=== PATIENT | male | born 1930 | race Caucasian/White ===

== ENCOUNTER 2016-10-05 14:24 | Inpatient (IN) | payer BC, MEDICARE ==
[2016-10-05] VITALS (8 sets, daily range): BP systolic 103–133; BP diastolic 48–67; PULSE 59–107; RESP 16–20; TEMP 96–99.9; O2SAT 92–96
[~2016-10-05] VITALS: Ht 167.6 cm; Wt 60.1 kg
[2016-10-05] MEDS ORDERED: AZITHROMYCIN 250 MG TAB PO STA (14:48)
[2016-10-05] MEDS ORDERED: SODIUM CHLOR 0.9% 1000 ML INJ 1,000 ML IV ONE (14:48)
[2016-10-05] MEDS ORDERED: cefTRIAXone INJ 2,000 MG in SODIUM CHLORIDE 0.9% INJ 100 ML IV STA (14:48)
[2016-10-05] MEDS ORDERED: SODIUM CHLOR 0.9% 1000 ML INJ 800 ML IV ONE (14:48)
--- NOTE | 2016-10-05 14:59 | PD ---
HPI . Altered mental status Chief Complaint: Altered Mental Status Time Seen by Provider: 14:42 Travel History International Travel<30 days: No Contact w/Intl Traveler<30days: No Traveled to known affect area: No History of Present Illness HPI Patient is brought in by family member with chief complaint altered mental status. History is obtained from the family member. He states that the patient was seen by nurse practitioner about 3 days ago for was not getting any better. He was given prescriptions. The family member reports that the patient has had worsening confusion and hallucinations is being started on those medications. Unfortunately, they did not bring his medications with them. The family member doesn't really know anything about the patient's past medical history. The family member is able to tell me that the patient is normally awake and alert and fully oriented and able to take care of himself. PFSH Past Medical History Blood Disorders: No Heart Rhythm Problems: No Cancer: Yes (PROSTATE) Cardiovascular Problems: Yes High Cholesterol: Yes Chemotherapy: No Chest Pain: No Congestive Heart Failure: No Cerebrovascular Accident: No Endocrine: No Genitourinary: Yes Headaches: No Hypertension: No Immune Disorder: No Kidney Stones: No Musculoskeletal: No Neurologic: Yes Psychiatric: No Respiratory: No Myocardial Infarction: No Radiation Therapy: No Renal Failure: No Seizures: No Past Surgical History AICD: No Genitourinary Surgery: Yes (PROSTATECTOMY, BLADDER SGRY) Joint Replacement: No Pacemaker: No Social History Alcohol Use: No Tobacco Use: No Substance Use: No Allergies-Medications (Allergen,Severity, Reaction): Coded Allergies: No Known Allergies (Verified , 10/05/16) Reported Meds & Prescriptions Reported Meds & Active Scripts Active Reported Simvastatin 20 Mg Tab 20 Mg PO HS Metoprolol Tartrate 25 Mg Tab 25 Mg PO BID Digox (Digoxin) 0.125 Mg Tab 0.125 Mg PO DAILY Zyrtec Allergy (Cetirizine HCl) 10 Mg Cap 10 Mg PO DAILY Tessalon Perles (Benzonatate) 100 Mg Cap 200 Mg PO TID PRN Review of Systems Except as stated in HPI: all other systems reviewed are Neg Respiratory: Positive: Cough Neurologic: Positive: Other (altered mental status) Psychiatric: Positive: Disorder of Thought (hallucinations) Physical Exam Narrative GENERAL: This is an older man who does not appear to be in any acute distress. SKIN: Hot and dry. It feels like he is running a fever. HEAD: Atraumatic. Normocephalic. EYES: Pupils equal and round. ENT: No nasal bleeding or discharge. Mucous membranes pink but dry. NECK: Trachea midline. Neck is supple. CARDIOVASCULAR: Regular rate and rhythm. He sounded tachycardic on exam. Initial heart rate was reported at 107. EKG has a heart rate of 95. RESPIRATORY: No accessory muscle use. His lungs sounded clear with full air movement throughout. Initial sats are 92%. He does have a cough. GASTROINTESTINAL: Abdomen soft, non-tender, nondistended. MUSCULOSKELETAL: No obvious deformities. No edema. NEUROLOGICAL: Awake and alert. No obvious cranial nerve deficits. Motor grossly within normal limits. Inappropriate speech. (His words are clear but his words do not appropriately answer the question asked.) PSYCHIATRIC: Unable to evaluate. Family member does report hallucinations. The patient appears anxious. Data Data Last Documented VS Vital Signs Date Time Temp Pulse Resp B/P Pulse Ox O2 Delivery O2 Flow Rate FiO2 10/05/16 15:41 94 Room Air 10/05/16 15:15 99.9 98 20 133/67 Orders Electrocardiogram (10/05/16 14:38) Complete Blood Count With Diff (10/05/16 14:48) Comprehensive Metabolic Panel (10/05/16 14:48) Lactic Acid Sepsis Protocol (10/05/16 14:48) Magnesium (Mg) (10/05/16 14:48) Ckmb (Isoenzyme) Profile (10/05/16 14:48) Troponin I (10/05/16 14:48) Urinalysis - C+S If Indicated (10/05/16 14:48) Influenzae A/B Antigen (10/05/16 14:48) Blood Culture (10/05/16 14:48) Chest, Single Ap (10/05/16 14:48) Blood Glucose (10/05/16 14:48) Ecg Monitoring (10/05/16 14:48) Iv Access Insert/Monitor (10/05/16 14:48) Oximetry (10/05/16 14:48) Oxygen Administration (10/05/16 14:48) Ceftriaxone Inj (Rocephin Inj) (10/05/16 14:48) Azithromycin (Zithromax) (10/05/16 14:48) Acetaminophen (Tylenol) (10/05/16 15:00) Sodium Chlor 0.9% 1000 Ml Inj (Ns 1000 M (10/05/16 14:48) Sodium Chlor 0.9% 1000 Ml Inj (Ns 1000 M (10/05/16 14:48) Cath For Specimen (10/05/16 15:46) Ct Brain W/O Iv Contrast(Rout) (10/05/16 ) Labs Laboratory Tests Test 10/05/16 15:15 White Blood Count 5.2 TH/MM3 Red Blood Count 4.22 MIL/MM3 Hemoglobin 12.7 GM/DL Hematocrit 36.9 % Mean Corpuscular Volume 87.5 FL Mean Corpuscular Hemoglobin 30.2 PG Mean Corpuscular Hemoglobin 34.5 % Concent Red Cell Distribution Width 12.7 % Platelet Count 155 TH/MM3 Mean Platelet Volume 7.6 FL Neutrophils (%) (Auto) 78.6 % Lymphocytes (%) (Auto) 13.5 % Monocytes (%) (Auto) 7.4 % Eosinophils (%) (Auto) 0.3 % Basophils (%) (Auto) 0.2 % Neutrophils # (Auto) 4.1 TH/MM3 Lymphocytes # (Auto) 0.7 TH/MM3 Monocytes # (Auto) 0.4 TH/MM3 Eosinophils # (Auto) 0.0 TH/MM3 Basophils # (Auto) 0.0 TH/MM3 CBC Comment DIFF FINAL Differential Comment Sodium Level 132 MEQ/L Potassium Level 3.7 MEQ/L Chloride Level 97 MEQ/L Carbon Dioxide Level 23.9 MEQ/L Anion Gap 11 MEQ/L Blood Urea Nitrogen 26 MG/DL Random Glucose 101 MG/DL Lactic Acid Level 1.0 mmol/L Calcium Level 8.1 MG/DL Magnesium Level 2.3 MG/DL Albumin 3.5 GM/DL MDM Medical Decision Making Medical Screen Exam Complete: Yes Emergency Medical Condition: Yes Medical Record Reviewed: Yes (he has no old records for review) Interpretation(s) EKG shows a sinus rhythm with a rate of 95 currently. There is no ST segment elevation or depression. Differential Diagnosis Differential diagnosis of altered mental status includes but is not limited to infection, electrolyte abnormality, neurological event, intoxication Narrative Course Patient since with progressively worsening altered mental status for the last 3 days. He is hallucinating. I would favor sepsis at this point. The nurse has large from the pharmacy that the patient is currently taking Zyrtec and Tessalon Perles. I have queried up-to-date and both of these medications can cause alteration in mental status. The pharmacy reports no other prescriptions on file for this patient. CXR: Single AP view of the chest. Cardiac pacemaker in place. The lungs are clear. Cardiomediastinal silhouette within normal limits. No evidence of pleural effusion or pneumothorax. The chest x-ray was independently viewed by me. Flu screen is negative. Sepsis Criteria SIRS Criteria (2 or more): Heart rate over 90 Physician Communication Physician Communication Discussed with Dr. Sutherland who will assume care. Diagnosis Primary Impression: Delirium Condition: Stable Alea Tee MD Oct 05, 2016 14:59
[2016-10-05] MEDS ORDERED: ACETAMINOPHEN 325 MG TAB PO ONE ×2 (15:00→18:00)
[2016-10-05] MEDS ORDERED: ZYRT10CA PO (15:06)
[2016-10-05] MEDS ORDERED: BENZ100 PO (15:06)
--- NOTE | 2016-10-05 15:29 | RADHPO ---
EXAM DATE/TIME: 10/05/2016 14:58 [facility] COMPARISON: No previous studies available for comparison. INDICATIONS : Short of breath with a cough. MEDICAL HISTORY : Cardiovascular disease. SURGICAL HISTORY : Cardiac pacemaker. ENCOUNTER: Initial ACUITY: 1 day PAIN SCORE: 10 LOCATION: Left chest FINDINGS: Single AP view of the chest. Cardiac pacemaker in place. The lungs are clear. Cardiomediastinal silho uette within normal limits. No evidence of pleural effusion or pneumothorax. CONCLUSION: No acute cardiopulmonary disease identified. Mat Avina MD on October 05, 2016 at 15:27 Board Certified Radiologist. This report was verified electronically.
[2016-10-05 15:40] LABS: AUTOMATED NEUTROPHIL # 4.1 TH/MM3 (1.8-7.7); BASOPHIL % 0.2 % (0.0-2.0); EOSINOPHIL % 0.3 % (0.0-4.0); HEMATOCRIT 36.9 % (39.0-51.0); LYMPH % 13.5 % (9.0-44.0); LYMPHOCYTE # 0.7 TH/MM3 (1.0-4.8); MEAN CELL VOLUME 87.5 FL (80.0-100.0); MEAN CORPUSCULAR HEMOGLOBIN 30.2 PG (27.0-34.0); MEAN CORPUSCULAR HGB CONC 34.5 % (32.0-36.0); MONO % 7.4 % (0.0-8.0); NEUT % 78.6 % (16.0-70.0); PLATELET COUNT 155 TH/MM3 (150-450); RED BLOOD COUNT 4.22 MIL/MM3 (4.50-5.90); RED CELL DISTRIBUTION WIDTH 12.7 % (11.6-17.2); WHITE BLOOD COUNT 5.2 TH/MM3 (4.0-11.0)
[2016-10-05] MEDS ORDERED: DIGO0.127 PO (15:43)
[2016-10-05] MEDS ORDERED: METO25TA3 PO (15:43)
[2016-10-05] MEDS ORDERED: SIMV20TA PO (15:43)
[2016-10-05 15:44] LABS: HEMO FLAGS DIFF FINAL
[2016-10-05 15:49] LABS: CHLORIDE 97 MEQ/L (98-107); POTASSIUM 3.7 MEQ/L (3.5-5.1); SODIUM (NA) 132 MEQ/L (136-145)
[2016-10-05 15:53] LABS: ANION GAP 11 MEQ/L (5-15); BICARBONATE 23.9 MEQ/L (21.0-32.0); BLOOD UREA NITROGEN 26 MG/DL (7-18); MAGNESIUM 2.3 MG/DL (1.5-2.5)
[2016-10-05 15:56] LABS: ALT (GPT) 30 U/L (12-78); AST (GOT) 32 U/L (15-37); GLOMERULAR FILTRATION RATE 63 ML/MIN (>89)
[2016-10-05 15:58] LABS: TOTAL BILIRUBIN ADULT 0.9 MG/DL (0.2-1.0)
[2016-10-05 15:59] LABS: ALKALINE PHOSPHATASE 45 U/L (45-117); CREATINE KINASE 267 U/L (39-308)
[2016-10-05 16:11] LABS: CKMB 1.3 NG/ML (0.5-3.6)
--- NOTE | 2016-10-05 16:27 | RADHPO ---
EXAM DATE/TIME: 10/05/2016 16:06 [facility] COMPARISON: No previous studies available for comparison. INDICATIONS : Increasing altered mental status. RADIATION DOSE: 56.85 CTDIvol (mGy) MEDICAL HISTORY : Carcinoma, prostate. SURGICAL HISTORY : Bladder surgery ENCOUNTER: Initial ACUITY: 1 day PAIN SCALE: 0/10 LOCATION: cranial TECHNIQUE: Multiple contiguous axial images were obtained of the head. Using automated exposure control and adj ustment of the mA and/or kV according to patient size, radiation dose was kept as low as reasonably a chievable to obtain optimal diagnostic quality images. FINDINGS: There is marked central and cortical atrophy with dilatation of ventricular and sulcal spaces. Scatte red areas of low attenuation throughout the white matter. There is no parenchymal hemorrhage, acute i nfarction or mass lesion identified. There are no extra-axial fluid collections appreciated. The po sterior fossa is unremarkable with midline fourth ventricle. The portion of the orbits and paranasal sinuses visualized are unremarkable. Left sphenoid sinus disease. CONCLUSION: 1. Cerebral atrophy and chronic ischemic small vessel vasculopathy. 2. Left sphenoid sinus disease. Juan Miguel Helton MD on October 05, 2016 at 16:24 Board Certified Radiologist. This report was verified electronically.
--- NOTE | 2016-10-05 16:29 | EKG ---
Date Performed: 10/05/2016 Time Performed: 14:38:08 PTAGE: 86 years EKG: Sinus rhythm Normal ECG PREVIOUS TRACING : 09/26/2005 04.58 No significant change from previous tracing noted. DOCTOR: Talha Romero Interpretating Date/Time 10/05/2016 16:27:13
--- NOTE | 2016-10-05 16:49 | PD ---
Physical Exam Narrative The patient was initially evaluated by the previous provider and signed out to me at the beginning my shift pending labs, imaging study, and disposition. See her note for further details. Data Data Last Documented VS Vital Signs Date Time Temp Pulse Resp B/P Pulse Ox O2 Delivery O2 Flow Rate FiO2 10/05/16 17:39 74 111/48 94 10/05/16 15:41 Room Air 10/05/16 15:15 99.9 20 Orders Electrocardiogram (10/05/16 14:38) Complete Blood Count With Diff (10/05/16 14:48) Comprehensive Metabolic Panel (10/05/16 14:48) Lactic Acid Sepsis Protocol (10/05/16 14:48) Magnesium (Mg) (10/05/16 14:48) Ckmb (Isoenzyme) Profile (10/05/16 14:48) Troponin I (10/05/16 14:48) Urinalysis - C+S If Indicated (10/05/16 14:48) Influenzae A/B Antigen (10/05/16 14:48) Blood Culture (10/05/16 14:48) Chest, Single Ap (10/05/16 14:48) Blood Glucose (10/05/16 14:48) Ecg Monitoring (10/05/16 14:48) Iv Access Insert/Monitor (10/05/16 14:48) Oximetry (10/05/16 14:48) Oxygen Administration (10/05/16 14:48) Ceftriaxone Inj (Rocephin Inj) (10/05/16 14:48) Azithromycin (Zithromax) (10/05/16 14:48) Acetaminophen (Tylenol) (10/05/16 15:00) Sodium Chlor 0.9% 1000 Ml Inj (Ns 1000 M (10/05/16 14:48) Sodium Chlor 0.9% 1000 Ml Inj (Ns 1000 M (10/05/16 14:48) Cath For Specimen (10/05/16 15:46) Ct Brain W/O Iv Contrast(Rout) (10/05/16 ) CKMB (10/05/16 15:15) CKMB% (10/05/16 15:15) Electrocardiogram (10/05/16 ) Ammonia (10/05/16 16:45) Thyroid Stimulating Hormone (10/05/16 16:45) Acetaminophen (Tylenol) (10/05/16 18:00) Digoxin (10/05/16 17:49) Admit Order (Ed Use Only) (10/05/16 17:53) Labs Laboratory Tests Test 10/05/16 10/05/16 10/05/16 15:15 16:53 17:30 White Blood Count 5.2 TH/MM3 Red Blood Count 4.22 MIL/MM3 Hemoglobin 12.7 GM/DL Hematocrit 36.9 % Mean Corpuscular Volume 87.5 FL Mean Corpuscular Hemoglobin 30.2 PG Mean Corpuscular Hemoglobin 34.5 % Concent Red Cell Distribution Width 12.7 % Platelet Count 155 TH/MM3 Mean Platelet Volume 7.6 FL Neutrophils (%) (Auto) 78.6 % Lymphocytes (%) (Auto) 13.5 % Monocytes (%) (Auto) 7.4 % Eosinophils (%) (Auto) 0.3 % Basophils (%) (Auto) 0.2 % Neutrophils # (Auto) 4.1 TH/MM3 Lymphocytes # (Auto) 0.7 TH/MM3 Monocytes # (Auto) 0.4 TH/MM3 Eosinophils # (Auto) 0.0 TH/MM3 Basophils # (Auto) 0.0 TH/MM3 CBC Comment DIFF FINAL Differential Comment Sodium Level 132 MEQ/L Potassium Level 3.7 MEQ/L Chloride Level 97 MEQ/L Carbon Dioxide Level 23.9 MEQ/L Anion Gap 11 MEQ/L Blood Urea Nitrogen 26 MG/DL Creatinine 1.10 MG/DL Estimat Glomerular Filtration 63 ML/MIN Rate Random Glucose 101 MG/DL Lactic Acid Level 1.0 mmol/L Calcium Level 8.1 MG/DL Magnesium Level 2.3 MG/DL Total Bilirubin 0.9 MG/DL Aspartate Amino Transf 32 U/L (AST/SGOT) Alanine Aminotransferase 30 U/L (ALT/SGPT) Alkaline Phosphatase 45 U/L Total Creatine Kinase 267 U/L Creatine Kinase MB 1.3 NG/ML Troponin I 0.14 NG/ML Total Protein 7.3 GM/DL Albumin 3.5 GM/DL Thyroid Stimulating Hormone 0.778 uIU/ML 3rd Gen Ammonia 16 MCMOL/L Digoxin Level 0.5 NG/ML Urine Collection Type CATH Urine Color YELLOW Urine Turbidity SLIGHT Urine pH 6.0 Urine Specific [place] 1.029 Urine Protein 30 mg/dL Urine Glucose (UA) NEG mg/dL Urine Ketones 15 mg/dL Urine Occult Blood LARGE Urine Nitrite NEG Urine Bilirubin NEG Urine Leukocyte Esterase NEG Urine RBC 20-24 /hpf Urine Transitional Epithelial 6-8 /hpf Cells Urine Amorphous Sediment MOD Microscopic Urinalysis Comment CATH-CULT NOT IND Urine Collection Time 1730 MDM Supervised Visit with PANCHITO: No Narrative Course Briefly this is an 86-year-old male who lives alone who was brought in by family members for evaluation of altered mental status, hallucinations, and confusion. Symptoms have been worsening over the last 3 days. The patient has had upper respiratory symptoms for the past month. He was started on Zyrtec and Tessalon Perles by his PCP 3 days ago. On my exam the patient is sleeping, however is arousable to voice. He is unable to tell me his name. He is confused. There are no focal neurologic deficits. Vital signs show heart rate 98, blood pressure 133/67, pulse ox 94% on room air, oral temp of 99.9F. CBC shows WBC 5.2, hemoglobin 12.7, hematocrit 36.9, platelets 155, neutrophils 78% . CMP shows sodium 132, chloride 97, BUN 26, creatinine 1.1, GFR 63, otherwise unremarkable. Lactic acid is 1.0. Troponin is 0.14. EKG shows sinus, rate 80 , normal axis, borderline first-degree AV block, PVCs, no ischemic abnormalities. Chest x-ray shows no acute cardio pulmonary disease. CT head shows cerebral atrophy and chronic ischemic small vessel vasculopathy. Left sphenoid sinus disease. Patient was given Rocephin and azithromycin by the previous provider. Patient is very altered. This could be secondary to medications or sepsis. UA is still pending. The patient be admitted for further treatment and evaluation of altered mental status, elevated troponin. Case discussed with [facility] hospitalist Dr. Donahue who will admit the patient to her service. At time of admission I found out the patient is on digoxin, so digoxin level was ordered at this time. Diagnosis Primary Impression: Altered mental status Qualified Code: R41.0 - Delirium Additional Impression: Elevated troponin Admitting Information Admitting Physician Requests: Admit Condition: Stable Phillip Sutherland MD Oct 05, 2016 16:49
[2016-10-05 17:39] LABS: BLOOD, URINE LARGE (NEG); GLUCOSE,URINE NEG (NEG); KETONE, URINE 15 mg/dL (NEG); NITRITE,URINE NEG (NEG)
[2016-10-05 17:56] LABS: METHOD OF COLLECTION CATH; URINE COLOR YELLOW (YELLW/STRAW)
[2016-10-05 17:58] LABS: COMMENT (UR) CATH-CULT NOT IND; COMMENT2 (UR) MUCOUS PRESENT; CULTURE IF INDICATED CATH CULTURE NOT IND
[2016-10-05] MEDS ORDERED: SODIUM CHLORIDE 0.9% FLUSH 5 ML FLUSH FLUSH PRN (18:00)
[2016-10-05] MEDS ORDERED: NALOXONE HCL 0.4 MG/ML AMP IV PRN (18:00)
[2016-10-05] MEDS ORDERED: ONDANSETRON HCL 4 MG/2 ML VIAL IVP PRN (18:00)
[2016-10-05] MEDS ORDERED: ACETAMINOPHEN 325 MG TAB PO PRN (18:00)
[2016-10-05] MEDS ORDERED: cefTRIAXone INJ 1,000 MG in SODIUM CHLORIDE 0.9% INJ 100 ML IV SCH (18:00)
[2016-10-05] MEDS ORDERED: AZITHROMYCIN INJ 500 MG in SODIUM CHLOR 0.9% 250 ML INJ 250 ML IV SCH (20:00)
[2016-10-05] MEDS ORDERED: ASPIRIN 81 MG CHEW TAB CHEW ONE (20:45)
[2016-10-05] MEDS: SODIUM CHLOR 0.9% 1000 ML INJ 1,000 ML IV SCH (20:52)
[2016-10-05] MEDS: HEPARIN SODIUM - SQ 10,000 UNITS/ML VIAL SQ SCH (20:52)
[2016-10-05] MEDS: SODIUM CHLORIDE 0.9% FLUSH 5 ML FLUSH FLUSH SCH (20:55)
--- NOTE | 2016-10-05 22:38 | EKG ---
Date Performed: 10/05/2016 Time Performed: 16:36:36 PTAGE: 86 years EKG: Sinus rhythm with PVC(s) with borderline 1st degree A-V block Borderline ECG PREVIOUS TRACING : 10/05/2016 14.38 Compared to previous tracing, PVCs or aberrantly conducted PSVCs are now present. DOCTOR: Talha Romero Interpretating Date/Time 10/05/2016 22:36:32
[2016-10-06 00:02] VITALS: BP 96/63; PULSE 57; RESP 20; TEMP 95.6; O2SAT 97
[2016-10-06 04:00] VITALS: BP 127/64; PULSE 60; RESP 20; TEMP 96.2; O2SAT 97
[2016-10-06 07:34] LABS: AUTOMATED NEUTROPHIL # 2.1 TH/MM3 (1.8-7.7); BASOPHIL % 0.1 % (0.0-2.0); EOSINOPHIL # 0.1 TH/MM3 (0-0.4); EOSINOPHIL % 2.5 % (0.0-4.0); HEMATOCRIT 34.7 % (39.0-51.0); HEMO FLAGS DIFF FINAL; LYMPH % 35.2 % (9.0-44.0); LYMPHOCYTE # 1.4 TH/MM3 (1.0-4.8); MEAN CELL VOLUME 88.7 FL (80.0-100.0); MEAN CORPUSCULAR HEMOGLOBIN 29.8 PG (27.0-34.0); MEAN CORPUSCULAR HGB CONC 33.6 % (32.0-36.0); MONO % 9.8 % (0.0-8.0); NEUT % 52.4 % (16.0-70.0); PLATELET COUNT 123 TH/MM3 (150-450); RED BLOOD COUNT 3.92 MIL/MM3 (4.50-5.90); RED CELL DISTRIBUTION WIDTH 12.9 % (11.6-17.2)
[2016-10-06 08:00] VITALS: BP 110/61; PULSE 59; RESP 18; TEMP 96.9; O2SAT 96
[2016-10-06 08:08] LABS: BICARBONATE 23.5 MEQ/L (21.0-32.0)
[2016-10-06] MEDS: HEPARIN SODIUM - SQ 10,000 UNITS/ML VIAL SQ SCH (08:13)
[2016-10-06] MEDS: SODIUM CHLOR 0.9% 1000 ML INJ 1,000 ML IV SCH (08:15)
[2016-10-06] MEDS: SODIUM CHLORIDE 0.9% FLUSH 5 ML FLUSH FLUSH SCH (08:15)
[2016-10-06 12:00] VITALS: BP 116/60; PULSE 61; RESP 18; TEMP 96.4; O2SAT 97
[2016-10-06] MEDS ORDERED: DIGOXIN 0.125 MG TAB PO SCH (14:00)
[2016-10-06] MEDS ORDERED: BENZONATATE 100 MG CAP PO PRN (14:00)
[2016-10-06] MEDS ORDERED: METOPROLOL TARTRATE 25 MG TAB PO SCH (14:00)
[2016-10-06] MEDS ORDERED: CETIRIZINE HCL 10 MG TAB PO SCH (14:00)
--- NOTE | 2016-10-06 14:15 | MH ---
cc: BUTCH TOMLINSON MD DATE OF ADMISSION: 10/05/2016 CHIEF COMPLAINT Altered mental status. HISTORY OF PRESENT ILLNESS: This is an 86-year male with past medical-surgical history significant for prostate cancer, hyperlipidemia, history of nasal allergies, hypertension, history of prostatectomy and bladder surgery who came to the ER at [facility] with altered mental status. The patient was confused. His history was obtained by the ER from the family member. The patient was seen by a nurse practitioner about three days ago without getting any better. The patient was given a prescription. The family member reported that the patient has had worsening confusion, hallucinations, and being started on those medications. Unfortunately, they did not bring these medications with them. The family member does not really know anything about the patient. The family member is not able to tell me if the patient is normally awake, alert and oriented but when I examined the patient, the patient was awake, alert and oriented times four. He denies any complaints and wants to go home. Other than that, nothing significant. PAST MEDICAL HISTORY / PAST SURGICAL HISTORY: As dictated above. SOCIAL HISTORY: Denies smoking, drinking or taking any drugs. He lives at home alone. He is a retired tractor-lokie driver. FAMILY HISTORY: Nothing significant. ALLERGIES: NO KNOWN DRUG ALLERGIES. MEDICATIONS: 1. Simvastatin 20 milligrams p.o. at bedtime. 2. Metoprolol 25 milligrams p.o. twice a day. 3. Digoxin 0.125 milligrams p.o. daily. 4. Lortab 10 milligrams p.o. daily. 5. Tessalon Perles 200 milligrams p.o. three times a day. REVIEW OF SYSTEMS: All review of systems are negative at the time of the examination. PHYSICAL EXAMINATION: GENERAL: On physical exam, this is an 86-year-old male sitting on the bed and not in acute distress. VITAL SIGNS: Temperature 96.4, heart rate 61, respirations 18, blood pressure 116/60, 02 saturation 97% on room air. HEAD, EYES, EARS, NOSE, THROAT: Normocephalic and atraumatic. Extraocular muscles intact. Pupils equal, round and reactive to light and accommodation. Oral mucosa moist. NECK: The neck is supple. No visible thyromegaly or neck mass. Trachea is central. CARDIOVASCULAR: Regular rate and rhythm. RESPIRATORY: Clear to auscultation bilaterally. ABDOMEN: Abdomen soft and nontender. Bowel sounds audible. EXTREMITIES: No pedal edema. No cyanosis. No clubbing. Full range of motion of all extremities. NEUROLOGIC: Awake, alert and oriented times four. No focal deficits. SKIN: Warm and dry. PSYCHIATRIC: The patient is cooperative. Mood and affect are normal. LABS: CBC is totally unremarkable except for hemoglobin of 11.7 low, hematocrit 34.7 low. Basic metabolic profile totally unremarkable except for chloride of 109 high and BUN 25 high, eGFR 82 low, calcium 7.8 low. 0.5, low. Occult blood large, RBCs 2240. Culture not indicated. Blood culture x2 done and negative so far. Influenza A and B negative. IMAGING STUDIES: CT brain done shows cerebral atrophy and chronic small-vessel ischemic atrophy on the left. Sphenoid sinus disease. Chest x-ray was done and shows no acute cardiopulmonary disease identified. ASSESSMENT AND PLAN: 1. This is an 86-year male who came to the ER diagnosed with altered mental status which has totally resolved. The patient is awake, alert and oriented x4 and wants to go home. Okay to discharge the patient home. 2. History of hypertension. Continue home medications. 3. History of prostate cancer status post prostatectomy. 4. History of hyperlipidemia, continue home medications. 5. Okay to discharge the patient home. Butch Tomlinson MD EA/TRIPP /1:52 PM /2:04 PM
[2016-10-06] MEDS ORDERED: PRAVASTATIN SOD 40 MG TAB PO SCH (21:00)
== END 2016-10-06 16:05 | disposition home or self-care (01) | DRG 948 ==
LOC: PHED 14:24 → PHEDA 17:55 → PH3A 19:00
PROVIDERS: ADMIT Family Medicine; ATTEND Family Medicine
DX: R41.82 Altered mental status, unspecified (principal); I10 Essential (primary) hypertension; R79.89 Other specified abnormal findings of blood chemistry; E78.00 Pure hypercholesterolemia, unspecified; Z95.0 Presence of cardiac pacemaker; E78.5 Hyperlipidemia, unspecified
CPT/HCPCS: 70450; 71010; 80048; 80053; 80162; 81001; 82140; 82550; 82552; 82948; 83605; 83735; 84443; 84484; 85025; 87040; 87804; 93005; 96361; 96365; J0696; J1644; J7030; P9612

== ENCOUNTER → 2017-08-14 | Outpatient (CLI) | payer MEDICARE, BC ==
[~2017-08-14] MED LIST: BENZ100 PO; DIGO0.127 PO; METO25TA3 PO; SIMV20TA PO; ZYRT10CA PO
[2017-08-14 09:36] LABS: ALBUMIN 3.5 GM/DL (3.4-5.0); ALT (GPT) 40 U/L (12-78); AST (GOT) 27 U/L (15-37); BICARBONATE 28.4 MEQ/L (21.0-32.0); CALCIUM 8.8 MG/DL (8.5-10.1); CHLORIDE 104 MEQ/L (98-107); CHOLESTEROL 157 MG/DL (120-200); CREATININE 1.12 MG/DL (0.60-1.30); GLOMERULAR FILTRATION RATE 62 ML/MIN (>89); GLUCOSE,FASTING 108 MG/DL (74-99); SODIUM (NA) 139 MEQ/L (136-145); TRIGLYCERIDES 257 MG/DL (42-150)
[2017-08-14 09:43] LABS: ALKALINE PHOSPHATASE 56 U/L (45-117); BLOOD UREA NITROGEN 25 MG/DL (7-18); CHOLESTEROL/ HDL RATIO 4.67 RATIO; HDL CHOLESTEROL 33.6 MG/DL (40.0-60.0); LDL CHOLESTEROL 72 MG/DL (0-99); TOTAL BILIRUBIN ADULT 0.8 MG/DL (0.2-1.0)
[2017-08-14 09:57] LABS: HEMATOCRIT 40.1 % (39.0-51.0); HEMOGLOBIN 13.8 GM/DL (13.0-17.0); MEAN CELL VOLUME 90.7 FL (80.0-100.0); MEAN CORPUSCULAR HEMOGLOBIN 31.1 PG (27.0-34.0); MEAN CORPUSCULAR HGB CONC 34.4 % (32.0-36.0); MEAN PLATELET VOLUME 7.6 FL (7.0-11.0); PLATELET COUNT 204 TH/MM3 (150-450); RED BLOOD COUNT 4.43 MIL/MM3 (4.50-5.90); RED CELL DISTRIBUTION WIDTH 13.9 % (11.6-17.2); WHITE BLOOD COUNT 4.5 TH/MM3 (4.0-11.0)
== END ==
LOC: PLAB 07:02
PROVIDERS: ATTEND Internal Medicine Interventional Cardiology
DX: I25.10 Atherosclerotic heart disease of native coronary artery without angina pectoris (principal); I48.0 Paroxysmal atrial fibrillation; I34.0 Nonrheumatic mitral (valve) insufficiency; I25.9 Chronic ischemic heart disease, unspecified; I47.2 Ventricular tachycardia
CPT/HCPCS: 36415; 80053; 80061; 85027